=== PATIENT | female | born 1935 | race Caucasian/White ===

== ENCOUNTER → 2019-04-13 | Outpatient (CLI) | payer MEDICARE, OTHER | LOC: M.MRI 16:30 | DX: M47.26 Other spondylosis with radiculopathy, lumbar region (principal); M48.061 Spinal stenosis, lumbar region without neurogenic claudication; M51.16 Intervertebral disc disorders with radiculopathy, lumbar region; M12.88 Other specific arthropathies, not elsewhere classified, other specified site ==

== ENCOUNTER → 2019-04-27 | Outpatient (CLI) | payer MEDICARE, OTHER ==
[~2019-04-27] MED LIST: ALEVE220 M1 PO; ASA81BEC PO; METOPROLOL TART25 MG PO
--- NOTE | ~2019-04-27 | PAINCON ---
[address] [address] PAIN MANAGEMENT CONSULTATION Name: [address] Room: [facility] MichelleGustavo#: [id number] Admission: 04/27/19 Attend Phys: Es Murphy MD Discharge: Date of : 35 Report #: [id number] THIS REPORT FOR: //name// CC: Johann Akhtar DATE OF SERVICE: 04/27/2019 CHIEF COMPLAINT: Pain in the right hip that goes down into the leg. I have had sciatica before. HISTORY: The patient is an 84-year-old female who has been referred to the pain clinic for evaluation. She noticed pain in her low back area with pain that radiated down to the right hip. In the past "many years ago," she had a similar pain and discomfort. She was told that she had sciatica. She has had pain that has started in her low back and right hip area. It was stabbing in nature. It travelled down into her right leg to the level of her ankle. She described it as exacerbated with walking, climbing stairs, and bending. Pain is better with rest. She has used Aleve. She has also used tramadol. Described it as periodic, aching, and at this point, rates it as a 1/10. She feels that has improved. She has not had back surgery. Denies any new back trauma. Denies any real activity prior to the onset of this discomfort. She does like to ride horses. ALLERGIES: No known drug allergies. CURRENT MEDICATIONS: Aspirin 81 mg, metoprolol 25 mg one-half tablet b.i.d., and Naprosyn 220 mg q.8 hours. PAST MEDICAL HISTORY: Colon problems. PAST SURGICAL HISTORY: 1. Right breast removal of benign cyst. 2. Hysterectomy. 3. Colon resection. 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 REVIEW OF SYSTEMS: Generally good health, recent weight change, wears glasses. The patient is quite active. She dances 2-3 times a week. Does notice some increased pain when she lifts heavy objects. IMAGING STUDIES: MRI of the lumbar spine dated 04/13/2019: 1. L3-4 disk narrowing with a mild broad-based disk bulge with mild bilateral facet arthrosis. There is mild central spinal canal [place] [address] PAIN MANAGEMENT CONSULTATION Name: [address] Room: [facility]#: [id number] Admission: 04/27/19 Attend Phys: Es Murphy MD Discharge: Date of : 35 Report #: [id number] neural foraminal stenosis. 2. L4-5 disk narrowing with a mild broad-based disk bulge, with bilateral facet arthrosis and bilateral ligamentum flavum hypertrophy. There is slight degenerative anterolisthesis of L4 on L5. These changes combined to cause mild central spinal canal stenosis and mild bilateral inferior neural foramen effacement. 3. L5-S1 slight disk bulge with bilateral facet arthrosis. No central canal stenosis or significant neural foraminal stenosis. PAIN CLINIC ASSESSMENT AND PQRS: 1. Osteoarthritis. The patient is not being treated for osteoarthritis or rheumatoid arthritis. 2. Height 5 feet 4 inches, weight 133 pounds, and BMI is 22. 3. Vital signs: Blood pressure 143/86, heart rate 76, respiratory rate 16, room air saturation is 97%, and temperature 98.0. 4. Pain intensity: 05/28. 5. Fall history: The patient has not fallen in the last 3 months. 6. Blood thinner. The patient is not on a blood thinning medication. 7. Hypertension. The patient is being treated for hypertension. 8. Opioids greater than 6 weeks: The patient is not receiving opioid medications. 9. Risk assessment tool: Low for opioid use. 10. Functional assessment tool: About . FUNCTIONAL 1. Recreational drug use: The patient denies. 2. Tobacco: The patient denies. 3. Alcohol. The patient denies frequent use of alcoholic beverages. PHYSICAL EXAMINATION: GENERAL: The patient is a well-developed, well-nourished white female. Appears her stated age. She is alert and oriented x 3. Her affect is appropriate. Speech is fluent. HEENT: Normocephalic, atraumatic. Extraocular eye muscles intact. Sclerae are nonicteric. Mucous membranes are moist. NECK: Without adenopathy or JVD. LUNGS: Generally clear. MUSCULOSKELETAL: Upper extremity muscle strength judged to be 5-/5 for the major muscle groups in the upper extremity. The patient's lower extremity, the patient has pain and discomfort and lower portion of her back with pain down into the right buttocks and down into the area of the ankle. This was about 2 weeks ago. IMPRESSION: 1. Improved sciatic nerve irritation. 2. [place] [address] PAIN MANAGEMENT CONSULTATION Name: [address] [facility] [id number] Admission: 04/27/19 Attend Phys: Es Murphy MD Discharge: Date of : 35 Report #: [id number] RECOMMENDATIONS: We discussed treatment options with the patient. A model was used to indicate the area of probable pathology. We reviewed this part of the anatomy with the patient and her . A video was shown to indicate the symptomatology and pathophysiology of sciatic nerve irritation. At this juncture, the patient feels that her pain has improved. She is not having any significant amount of pain, rates it as a 1/10. We did review the patient's MRI line by line and correlated that to the model. She and her appear to understand. At this juncture, since she is not having pain and it is improving, we would recommend that the patient continue on her current activity level. Should her pain become more problematic or reoccur, an option of an epidural steroid injection remains given that things have gone reasonably well and that she did improve after the intramuscular Depo-Medrol injection of 80 mg. She will call us if she has any concerns. We would like to thank you for letting us participate in her care. We hope she continues to improve. By: [id number]. Roverto Murphy MD /nt
== END ==
LOC: M.PC 05:01
DX: M54.31 Sciatica, right side (principal); I10 Essential (primary) hypertension; Z79.899 Other long term (current) drug therapy; Z79.82 Long term (current) use of aspirin

== ENCOUNTER 2020-08-17 19:34 | Inpatient (IN) | payer OTHER ==
[~2020-08-17] VITALS: Ht 162.6 cm; Wt 49.4 kg
[2020-08-17 19:35] VITALS: BP 133/86
[2020-08-17] MEDS ORDERED: MEDROLDOSEPACK PO (19:36)
[2020-08-17] MEDS ORDERED: FLEXERIL PO (19:36)
[2020-08-17] MEDS ORDERED: HYDROCODON-ACE1 EAC8 PO (19:36)
[2020-08-17] MEDS ORDERED: PARAGARD T 3801 EACH PO (19:40)
[2020-08-17] MEDS ORDERED: CO Q-1010 MG PO (19:41)
[2020-08-17 20:06] LABS: ABSOLUTE BASOPHILS 0.1 thou/uL (0.0-0.2); ABSOLUTE EOSINOPHILS 0.1 thou/uL (0.0-0.7); ABSOLUTE LYMPHOCYTES 1.6 thou/uL (0.8-5.3); ABSOLUTE MONOCYTES 1.3 thou/uL (0.0-1.2); ABSOLUTE NEUTROPHILS 5.3 thou/uL (1.6-8.1); BASOPHILS 0.6 %; EOSINOPHILS 0.8 %; HEMATOCRIT 43.9 % (37.0-47.0); HEMOGLOBIN 14.7 gm/dL (12.0-15.0); LYMPHOCYTES 19.1 %; MCH 31.9 pg (26.0-34.0); MCHC 33.5 g/dL (28.0-37.0); MCV 95.2 fL (80.0-100.0); MONOCYTES 15.2 %; MPV 8.1 fl. (7.2-11.1); NUCLEATED RBCS 0 /100WBC; PLATELET COUNT* 303 thou/uL (150-400); POLYS 64.3 %; RBC 4.61 mil/uL (4.20-5.00); RDW-CV 13.8 % (10.5-14.5); WBC 8.3 thou/uL (4.0-11.0)
[2020-08-17 20:11] LABS: CALCIUM 8.3 mg/dL (8.5-10.1); CREATININE 0.8 mg/dL (0.6-1.3); POTASSIUM 4.2 mmol/L (3.5-5.1)
[2020-08-17 20:16] LABS: INR 1.1; PROTIME 11.6 Seconds (9.20-11.50)
[2020-08-17 20:28] LABS: ALBUMIN 2.8 g/dL (3.4-5.0); MAGNESIUM 2.3 mg/dL (1.8-2.4); TOTAL BILIRUBIN 0.8 mg/dL (<0.1-1.0); TOTAL PROTEIN 6.5 g/dL (6.4-8.2)
[2020-08-17 23:02] LABS: URINE BILIRUBIN NEGATIVE (Negative); URINE BLOOD 2+ (Negative); URINE CLARITY CLEAR; URINE COLOR YELLOW; URINE GLUCOSE-RANDOM NEGATIVE (Negative); URINE KETONES 2+ (Negative); URINE LEUKOCYTES-REFLEX NEGATIVE (Negative); URINE NITRITE-REFLEX NEGATIVE (Negative); URINE PROTEIN NEGATIVE (Negative); URINE SPECIFIC GRAVITY 1.015 (1.005-1.030); URINE UROBILINOGEN 0.2 E.U./dl (0.2-1.0)
[2020-08-17 23:10] LABS: RENAL EPITHELIAL CELLS 0-3 Few /LPF (None Seen); SQUAMOUS 0-3 Few /LPF (0-3); TRANSITIONAL EPITHEL CELL 0-3 Few /LPF (None Seen); URINE RBC >20 Many /HPF (0-2)
[2020-08-17 23:11] LABS: CRYSTALS None Seen /LPF (None Seen); FINE GRANULAR CASTS 0-3 Few /LPF (None Seen); HYALINE CASTS 0-3 Few /LPF (None Seen); MUCUS 4-6 Moderate strn/LPF (None Seen)
[2020-08-17] MEDS ORDERED: COPPER2 M1 PO (23:11)
[2020-08-17 23:13] VITALS: BP 110/56
[2020-08-17 23:59] VITALS: BP 119/77
[2020-08-18] VITALS (10 sets, daily range): BP systolic 85–125; BP diastolic 50–84
--- NOTE | 2020-08-18 02:07 | NUR ---
PATIENT ARRIVED ON FLOOR AT APPROXIMATELY 2330. INITIAL ASSESSMENT HEART RATE WAS 113. AT APPROXIMATELY 12:20 PATIENT HEART RATE INCREASED TO 130-140s. PATIENT SUSTAINED THIS RATE FOR APPROXIMATELY 30 MINS. PATIENT ASYMPTOMATIC. OBTAINED EKG THAT SHOWED SVT. ON-CALL PHYSICIAN CONTACTED. NOTIFIED THAT PATIENT HYPOTENSIVE WITH BP 99/63. RECEIVED ORDERS FOR NS BOLUS. PATIENT CONTINUED TO MAINTAIN ELEVATED HR AND CARDIOLOGY WAS CONSULTED. PATIENT CURRENTLY ON CARDIZEM DRIP AT 5ML/HOUR. HEART RATE FLUCTUATING BETWEEN 110s and 130s. WILL CONTINUE TO MONITOR.
[2020-08-18 09:08] LABS: CREATININE 1.6 mg/dL (0.6-1.3); POTASSIUM 3.2 mmol/L (3.5-5.1)
[2020-08-18 09:11] LABS: PHOSPHORUS* 3.1 mg/dL (2.5-4.9)
--- NOTE | 2020-08-18 09:55 | EKG ---
[place] [address] ELECTROCARDIOGRAM REPORT Name: [address] Room: [address] ADM IN [facility].#: [id number] Admission: 08/18/20 Attend Phys: Kimmy Kelley MD Discharge: Date of : 35 Date of Service: 08/17/201937 Report #: [id number] THIS REPORT FOR: //name// [facility] ED Test Date: 2020-08-17 Test Time: 19:38:52 Pat Name: [address] Department: Room: [facility] Gender: F Personal Injury Attorney: [place] : 1935 Requested By: Shanta Crawford Order Number: [id number] MD: Sam Valdez Measurements Intervals [place] Rate: 141 P: SC: QRS: 8 QRSD: 88 T: 49 QT: 322 QTc: 493 Interpretive Statements Atrial fibrillation with rapid V-rate Borderline low voltage, extremity leads ST depression, probably rate related No previous ECG available for comparison Electronically Signed On 08-18-2020 9:55:04 CDT by Sam Valdez [email or web address] <ELECTRONICALLY SIGNED> By: Sam Valdez MD, FAC 08/18/20 0955 37 37 Sam Valdez MD, [facility] /EPI
--- NOTE | 2020-08-18 09:56 | EKG ---
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
--- NOTE | 2020-08-18 09:58 | EKG ---
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 : 1935 Requested By: Shanta Crawford Order Number: [id number] Reading MD: Sam Valdez Measurements Intervals [place] Rate: 101 P: 8 [place]: 201 QRS: -14 QRSD: 100 T: 44 QT: 337 QTc: 437 Interpretive Statements Sinus tachycardia with mobitz type I second degree AV block Borderline low voltage, extremity leads Compared to ECG 08/17/2020 20:09:37 atrial fibrillation no longer noted Electronically Signed On 08-18-2020 9:58:30 CDT by Sam Valdez [email or web address] <ELECTRONICALLY SIGNED> By: Sam Valdez MD, FAC 08/18/20 0958 42 42 Sam Valdez MD, FAC /EPI
--- NOTE | 2020-08-18 09:59 | EKG ---
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
--- NOTE | 2020-08-18 10:01 | EKG ---
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
--- NOTE | 2020-08-18 10:01 | EKG ---
[place] [address] ELECTROCARDIOGRAM REPORT Name: JIGNESH STREETYCMary Hernandez Room: [address] IN .R.#: [id number] Admission: 08/18/20 Attend Phys: Kimmy Kelley MD Discharge: Date of : 35 Date of Service: 08/18/20 0057 Report #: [id number] THIS REPORT FOR: //name// [facility] Test Date: 2020-08-18 Test Time: 00:57:28 Pat Name: [address] Department: Room: [address] Gender: F Tool Analyst: JAna : 1935 Requested By: Kimmy Kelley Order Number: [id number] Reading MD: Sam Valdez Measurements Intervals [place] Rate: 142 P: 0 PA: 152 QRS: 39 QRSD: 85 T: 41 QT: 307 QTc: 472 Interpretive Statements Supraventricular tachycardia Low voltage, extremity leads Compared to ECG 08/17/2020 22:02:50 Sinus tachycardia no longer present Electronically Signed On 08-18-2020 10:01:18 CDT by Sam Valdez [email or web address] <ELECTRONICALLY SIGNED> By: Sam Valdez MD, [facility] 08/18/20 1001 0057 0057 Sam Valdez MD, [facility] /EPI
--- NOTE | 2020-08-18 14:23 | 2DMMODE ---
[place] [address] 2 D/M-MODE ECHOCARDIOGRAM Name: [address] Room: [address] IN .Carlos.#: [id number] Admission: 08/18/20 Attend Phys: Kimmy Kelley MD Discharge: Date of : 35 Date of Service: 08/18/20 1423 Report #: [id number] THIS REPORT FOR: cc: Johann Eddy Bradley L. DO Blick, David R. MD [facility] ~ APPROVED REPORT Study performed: 08/18/2020 10:10:45 EXAM: Comprehensive 2D, Doppler, and color-flow Echocardiogram Patient Location: In-Patient Room #: [facility] Status: routine BSA: 1.58 HR: 80 bpm BP: 103/60 mmHg Rhythm: NSR Other Information Study Quality: Good Indications Arrhythmia 2D Dimensions IVSd: 9.52 (7-11mm) LVOT Diam: 21.40 (18-24mm) LVDd: 38.65 mm PWd: 9.50 (7-11mm) Ascending Ao: 33.50 (22-36mm) LVDs: 26.61 (25-40mm) Aortic Root: 33.32 mm Volumes Left Atrial Volume (Systole) LA ESV Index: 32.20 mL/m2 Aortic Valve AoV Peak Uzair.: 1.18 m/s AO Peak Gr.: 5.55 mmHg LVOT Max P.92 mmHg AO Mean Gr.: 3.10 mmHg LVOT Mean P.51 mmHg LVOT Max V: 0.99 m/s AO V2 VTI: 19.69 cm LVOT Mean V: 0.54 m/s VONDA (VTI): 3.07 cm2 LVOT V1 VTI: 16.79 [place] [address] 2 D/M-MODE ECHOCARDIOGRAM Name: [address] Room: [address] IN ..#: [id number] Admission: 08/18/20 Attend Phys: Kimmy Kelley MD Discharge: Date of : 35 Date of Service: 08/18/20 1423 Report #: [id number] Mitral Valve E/A Ratio: 0.80 MV Decel. Time: 249.37 ms MV E Max Uzair.: 0.50 m/s MV PHT: 72.32 ms MVA (PHT): 3.04 cm2 TDI E/Lateral E': 5.56 E/Medial E': 7.14 Medial E' Uzair.: 0.07 m/s Lateral E' Uzair.: 0.09 m/s Pulmonary Valve PV Peak Uzair.: 0.72 m/s PV Peak Gr.: 2.08 mmHg Tricuspid Valve RAP Estimate: 5.00 mmHg TR Peak Gr.: 22.21 mmHg RVSP: 27.00 mmHg PA Pressure: 27.00 mmHg Left Ventricle The left ventricle is normal size. There is normal LV segmental wall motion. There is normal left ventricular wall thickness. Left ventricular systolic function is normal. The left ventricular ejection fraction is within the normal range. LVEF is 55-60%. Grade I - abnormal relaxation pattern. Right Ventricle The right ventricle is normal size. The right ventricular systolic function is normal. Atria Left atrium is mildly dilated. The right atrium size is normal. Aortic Valve The aortic valve is normal in structure. trace aortic regurgitation is present. There is no aortic valvular stenosis. Mitral Valve The mitral valve is normal in structure. Moderate mitral regurgitation. No evidence of mitral valve stenosis. Tricuspid Valve The tricuspid valve is normal in structure. Mild tricuspid regurgitation. estimated pa pressure 30 [place] [address] 2 D/M-MODE ECHOCARDIOGRAM Name: [address] Room: [address] IN [facility]#: [id number] Admission: 08/18/20 Attend Phys: Kimmy Kelley MD Discharge: Date of : 35 Date of Service: 08/18/20 1423 Report #: [id number] Pulmonic Valve The pulmonary valve is normal in structure. Trace pulmonic regurgitation. Great Vessels The aortic root is normal in size. IVC is normal in size and collapses >50% with inspiration. Pericardium There is no pericardial effusion. <Conclusion> LVEF is 55-60%. Left atrium is mildly dilated. Moderate mitral regurgitation. <ELECTRONICALLY SIGNED> By: Sam Valdez MD, [facility] 08/18/20 1423 1423 1423 Sam Valdez MD, FACC /INF
--- NOTE | 2020-08-18 15:26 | NUR ---
SPOKE WITH PT. INTRODUCED ROLE OF CM. SHE SAID SHE LIVES WITH HER S.O. NO USE OF DME. IS INDEPENDENT. KALLI CAN HELP HER IF NEEDED. SHE DOES NOT FEEL SHE WILL HAVE DISCHARGE NEEDS AND PLANS TO GO HOME AT DISCHARGE.
--- NOTE | 2020-08-18 15:38 | CON ---
[address] [address] CONSULTATION Name: [address] Room: [address] IN M.Carlos.#: [id number] Admission: 08/18/20 Attend Phys: Kimmy Kelley MD Discharge: Date of : 35 Report #: [id number] THIS REPORT FOR: cc: Johann Eddy Bradley L. DO Blick, David R. MD [facility] ~ DATE OF SERVICE: 08/18/2020 CARDIOLOGY CONSULTATION HISTORY OF PRESENT ILLNESS: The patient is an 85-year-old single white female who I was asked to see in the hospital today after she is noted to have episodes of tachycardia. The history is obtained from the patient. There are no old records available. There are no family members available at this time. The patient states that in 1970, she actually had a heart attack while living in [place]. She has done well since that time. She notes that recently she had a urinary tract infection and was placed on Bactrim. However, she went to the Emergency Room again with constipation and apparently her heart rate was elevated. She has been taking metoprolol 25 mg twice a day for blood pressure. In the Emergency Room, she was told to increase the metoprolol to 50 mg twice a day. She was doing well until yesterday, she was at home when she felt lightheaded. She then noticed her heart beating fast and irregular. Her friend brought her to the Emergency Room where she is admitted for further evaluation and treatment. She denies any recent fever or cough. She denied any shortness of breath. She has had occasional edema. She has had no history of syncope or murmur. PAST MEDICAL HISTORY: She has had previous hemicolectomy for colon cancer followed by chemotherapy. She has had a hysterectomy. She has a history of hypertension. CURRENT MEDICATIONS: Consisted of metoprolol, which she has now been taking 50 mg twice a day; supplements. ALLERGIES: She has no known drug allergies. FAMILY HISTORY: Mom had a heart attack. SOCIAL HISTORY: She is , lives with a friend in [place], [place]. No smoking. Rarely drinks alcohol. REVIEW OF SYSTEMS: No history of stroke, asthma, liver disease, GI bleeding, kidney disease, cancer, arthritis. She does wear glasses[place] [address] CONSULTATION Name: [address] Room: [address]#: [id number] Admission: 08/18/20 Attend Phys: Kimmy Kelley MD Discharge: Date of : 35 Report #: [id number] PHYSICAL EXAMINATION: GENERAL: Revealed an elderly, frail-appearing female, lying in bed. She appeared in no acute distress. VITAL SIGNS: She had a blood pressure of 110/60, pulse is 80 and regular. She is afebrile. HEENT: She was anicteric. Conjunctivae pink. Mucous membranes moist. NECK: Veins do not appear distended. No carotid bruits. Neck supple. CHEST: Clear to auscultation. CARDIOVASCULAR: Regular rate and rhythm without murmur. ABDOMEN: Soft. EXTREMITIES: Had no edema. Dorsalis pedis pulse 2+ bilaterally. SKIN: Cool and dry. NEUROLOGIC: Nonfocal. RADIOLOGICAL DATA: ECG when she arrived to the Emergency Room yesterday, she was in a sinus rhythm with nonspecific ST-segment changes. The subsequent ECG appeared to show an episode of atrial tachycardia. Another ECG showed an episode of atrial fibrillation with rapid ventricular response rate. Her workup included a rhythm strip that appeared to show an episode of Mobitz type 1 second-degree AV block. Her x-rays, she had a portable chest x-ray on admission last night in the Emergency Room that showed some atelectasis. She actually had a CT scan of the chest using a PE protocol that showed no pulmonary embolus or other acute abnormalities. For her constipation, she actually underwent a CT scan of the abdomen that showed gallstones, bladder diverticulum, hiatal hernia. LABORATORY WORK: Sodium 142, potassium 3.2, BUN 30, creatinine 1.6, SGOT 54, alkaline phosphatase is 169. Troponins all less than 0.06. BNP 2300. TSH 4.7. D-dimer 2.3. White blood cell count 8.3, hemoglobin 14.7. COVID antigen stat test was negative. Urinalysis negative for protein, many wbc's, moderate bacteria. IMPRESSION AND RECOMMENDATIONS: 1. Episode of paroxysmal supraventricular tachycardia and atrial fibrillation. Recommend antiarrhythmic therapy. I would recommend starting amiodarone. I would not recommend sotalol because of episode of Mobitz type 1 atrioventricular block. 2. Hypertension. The patient has been on a beta-markell. 3. Recent urinary tract infection. The patient appears to have ongoing pyuria. 4. Dizzy spell. Possibly related to atrial fibrillation. <ELECTRONICALLY SIGNED> By: Sam Valdez MD, FACC 08/18/20 1538 1107 [id number] Valdez MD, FAC /nt
--- NOTE | 2020-08-18 18:44 | NUR ---
ASSUMED CARE OF PT AT 0730. PT ON CARDIZEM GTT THIS AM-TITRATED OFF AND PT STARTED ON AMIODARONE-TRACING SR ON THE CIVIL ENGINEERING INTERN. A&0X4, DENIES ANY PAIN OR SHORTNESS OF BREATH THROUGHOUT SHIFT. ON RA SAT UPPER 90'S. PT UP SBA TO BATHROOM. POTASSIUM BEING REPLACED PER ELECTROLYTE PROTOCOL. PT HAD ECHO AND US CAROTIDS TODAY-REFER TO RESULTS. PROGRESSING TOWARDS GOALS. PROBABLE DISCHARGE HOME TOMORROW 08/19. AM ASSESSMENT CHARTED. MEDICATIONS PER JUL. PT REPOSITIONS SELF. HOURLY ROUNDING OBSERVED. BED IN LOW POSITION. CALL LIGHT WITHIN REACH. WILL CONTINUE PLAN OF CARE.
[2020-08-19 00:08] VITALS: BP 114/61
[2020-08-19 04:46] VITALS: BP 130/84
[2020-08-19 04:52] LABS: CALCIUM 8.6 mg/dL (8.5-10.1); CREATININE 0.6 mg/dL (0.6-1.3)
--- NOTE | 2020-08-19 07:54 | NUR ---
Shift uneventful. Pt aox4, running SR to ST on telemetry, respirations even and unlabored on room air. Pt is medically stable at this time.
[2020-08-19 08:00] VITALS: BP 131/92
[2020-08-19 11:37] VITALS: BP 116/77
[2020-08-19 16:14] VITALS: BP 125/82
--- NOTE | 2020-08-19 18:54 | NUR ---
RECEIVED REPORT. ASSUMED CARE OF PT AROUND 0730. AM ASSESSMENT AND VITALS COMPLETED CHARTED. MEDS PER EMAR. ABLE TO WORK WITH P.T. TODAY; APPETITE GOOD. NO PAIN TODAY. HEART RATE HAS PERSISTED TO BE TACHY THIS SHIFT - CARDIOLOGY AWARE. AMIO BOLUS GIVEN. PRN VERAPAMIL. UP WITH SBA TO BATHROOM. RESTRED THIS AFTERNOON. FALL PRECAUTIONS IN PLACE. CALL LIGHT WITHIN REACH. HOURLY ROUNDING.
[2020-08-19 21:00] VITALS: BP 115/58
[2020-08-20 00:17] VITALS: BP 104/60
[2020-08-20 03:44] LABS: HEMATOCRIT 37.2 % (37.0-47.0); MCH 31.7 pg (26.0-34.0); MCHC 33.4 g/dL (28.0-37.0); MCV 94.9 fL (80.0-100.0); MPV 7.9 fl. (7.2-11.1); RBC 3.92 mil/uL (4.20-5.00); RDW-CV 14.1 % (10.5-14.5); WBC 8.2 thou/uL (4.0-11.0)
[2020-08-20 04:12] LABS: HEMOGLOBIN 12.4 gm/dL (12.0-15.0)
[2020-08-20 04:24] LABS: ALBUMIN 2.2 g/dL (3.4-5.0); CALCIUM 7.8 mg/dL (8.5-10.1); CREATININE 0.7 mg/dL (0.6-1.3); MAGNESIUM 1.9 mg/dL (1.8-2.4); POTASSIUM 4.1 mmol/L (3.5-5.1); TOTAL BILIRUBIN 0.3 mg/dL (<0.1-1.0); TOTAL PROTEIN 5.3 g/dL (6.4-8.2)
--- NOTE | 2020-08-20 05:15 | NUR ---
No acute event this shift. Pt been sinus rhythm with rate of on 80-90's overnight, has ocassional over 100's HR with activity. Pt no complains of pain. Meds given per mar, call light within reach, will continue POC.
[2020-08-20 05:28] VITALS: BP 140/75
[2020-08-20 08:00] VITALS: BP 114/60
[2020-08-20 12:30] VITALS: BP 110/68
--- NOTE | 2020-08-20 16:28 | NUR ---
ASSUMED PT CARE AT 0730, PT AOX4 BUT NOT ORIENTED TO OWN ABILITIES. PT UP W/ AND NEEDS A WALKER, TRIED TO GIVE PT A WALKER, PT REFUSED WALKER BUT HOLDS ON TO NURSING STAFF WHEN AMBULATING TO BATHROOM. FALL PRECAUTIONS IN PLACE. PT GOAL IS TO KEEP HEART RATE UNDER CONTROL AND REMAIN FREE FROM FALLS. HEART RATE WNL FOR MOST OF DAY, WILL MOST LIKELY DC TOMORROW.
[2020-08-20 17:36] VITALS: BP 131/68
[2020-08-20 20:00] VITALS: BP 101/62
[2020-08-21 00:07] VITALS: BP 119/67
[2020-08-21 04:51] VITALS: BP 118/66
[2020-08-21 08:11] VITALS: BP 116/59
[2020-08-21] MEDS ORDERED: BAYER CHEWABLE81 MG PO (08:35)
[2020-08-21] MEDS ORDERED: BACTRIM DS TAB1 EACH PO (08:35)
[2020-08-21] MEDS ORDERED: VERAPAMIL HCL180 M2 PO (08:35)
[2020-08-21] MEDS ORDERED: PACERONE 200 M200 M1 PO ×2 (08:35→09:19)
[2020-08-21 10:58] VITALS: BP 116/59
[2020-08-21 11:30] VITALS: BP 94/48
--- NOTE | 2020-08-21 11:32 | NUR ---
ASSUMED CARE OF PT AT 0730. PT RESTING IN BED WAITING FOR BREAKFAST. A&0X4, DENIES ANY PAIN OR SHORTNESS OF BREATH AT THIS TIME. TRACING SR WITH BBB ON THE GRINDER OPERATOR SURFACE TOOL. ON RA SAT UPPER 90'S. PT UP WITH SBA TO BATHROOM. PT GOAL FOR TODAY IS DISCHARGE PLANNING TO HOME. AM ASSESSMENT CHARTED. MEDICATIONS PER MAR. PT REPOSITIONS SELF. HOURLY ROUNDING OBSERVED. BED IN LOW POSITION. CALL LIGHT WITHIN REACH. WILL CONTINUE PLAN OF CARE.
--- NOTE | 2020-08-21 13:15 | NUR ---
CM INFORMED DURING PRIME ROUNDING OF THE PLAN OF CARE FOR THE PT. PLAN FOR THE PT TO D/C HOME TODAY WITH SELF-CARE. NO CM D/C PLANNING NEEDS ANTICIPATED. CM WILL REMAIN AVAILABLE TO ASSIST AND FOLLOW NEEDED.
--- NOTE | 2020-08-21 13:17 | NUR ---
DISCHARGE ORDERS RECEIVED. DISCHARGE INSTRUCTIONS, CARE NOTES, E SCRIPTS AND FOLLOW UP APPTS GIVEN TO PT. PT COMMUNICATES UNDERSTANDING OF DISCHARGE TEACHING. IV AND FACILITY SERVICE ASSOCIATE REMOVED. PT DISCHARGED WITH ALL BELONGINGS AND PAPERWORK VIA WHEELCHAIR WITH NURSING STAFF TO FAMILY OWN PERSONAL VEHICLE.
--- NOTE | 2020-08-21 14:08 | NUR ---
PT. DISCHARGED TO HOME PRIOR TO O.T. SESSION. PLEASE ORDER FURTHER O.T. SERVICES IF NEEDED.
== END 2020-08-21 13:17 | disposition home or self-care (01) | DRG 308 ==
LOC: M.ERS 19:34 → M.2W 22:19 → M.TBA-ER 22:19 → M.2W 23:25
PROVIDERS: Emergency Medicine; Internal Medicine; Internal Medicine Cardiovascular Disease; ADMIT Family Medicine; ATTEND Family Medicine
DX: I47.1 Supraventricular tachycardia (principal); N17.0 Acute kidney failure with tubular necrosis; E44.0 Moderate protein-calorie malnutrition; Z68.1 Body mass index [BMI] 19.9 or less, adult; N39.0 Urinary tract infection, site not specified; K80.20 Calculus of gallbladder without cholecystitis without obstruction; E87.6 Hypokalemia; I10 Essential (primary) hypertension; Z20.822 Contact with and (suspected) exposure to COVID-19; Z85.038 Personal history of other malignant neoplasm of large intestine; Z79.899 Other long term (current) drug therapy; I25.2 Old myocardial infarction

== ENCOUNTER 2020-09-13 15:01 | Emergency (ER) | payer OTHER ==
[~2020-09-13] VITALS: Ht 162.6 cm; Wt 51.7 kg
[~2020-09-13 15:01] MED LIST changes: +BACTRIM DS TAB1 EACH PO; +BAYER CHEWABLE81 MG PO; +CO Q-1010 MG PO; +COPPER2 M1 PO; +FLEXERIL PO; +FLUCONAZOLE 10100 MG PO; +HYDROCODON-ACE1 EAC8 PO; +LISINOPRIL5 MG PO; +LOPRESSOR50 PO; +MEDROLDOSEPACK PO; +OMEPRAZOLE 20 M20 M1 PO; +PACERONE 200 M200 M1 PO; +PARAGARD T 3801 EACH PO; +REGLAN 5 MG TAB5 MG PO; +SENNA PLUS TAB1 EACH PO; +VERAPAMIL HCL180 M2 PO; +ZOFRAN4 MG PO
[2020-09-13 16:31] VITALS: BP 136/61
== END 2020-09-13 16:31 | disposition home or self-care (01) ==
LOC: M.ERS 15:01
DX: S01.01XA Laceration without foreign body of scalp, initial encounter (principal); I10 Essential (primary) hypertension; I25.2 Old myocardial infarction; Z79.899 Other long term (current) drug therapy; Z79.82 Long term (current) use of aspirin; Z90.710 Acquired absence of both cervix and uterus; Z98.51 Tubal ligation status; Z85.038 Personal history of other malignant neoplasm of large intestine; Z90.49 Acquired absence of other specified parts of digestive tract; W18.09XA Striking against other object with subsequent fall, initial encounter; Y93.89 Activity, other specified; Y92.59 Other trade areas as the place of occurrence of the external cause; Y99.9 Unspecified external cause status

== ENCOUNTER → 2021-03-20 | Outpatient (CLI) | payer OTHER | LOC: M.RAD 14:50 | PROVIDERS: ATTEND Nurse Practitioner | DX: I48.91 Unspecified atrial fibrillation (principal); Z79.899 Other long term (current) drug therapy ==